=== PATIENT | female | born 2000 | race Two or more races ===

== ENCOUNTER 2018-04-09 16:43 | Emergency (ER) | payer OTHER ==
[2018-04-09 16:58] VITALS: BP 115/72
[2018-04-09] MEDS ORDERED: Tetracaine 0.5% OPTH.SOL 4 ML* 1 DROP BTL BOTH EYES ONE (17:10)
--- NOTE | 2018-04-09 17:17 | UC ---
Eye Complaint HPI - HPI Summary HPI Summary: Got sunscreen in her eye about 3 hours ago---got some eye rinse at the pharmacy is her because eye are red and sore - History of Current Complaint Chief Complaint: UCEye Stated Complaint: SUNSCREEN IN EYES Time Seen by Provider: 04/09/18 17:06 Hx Obtained From: Patient Hx Last Menstrual Period: 2 weeks ?: No Onset/Duration: Sudden Onset, Lasting Hours - 3, Still Present Timing: Constant Pain Intensity: 7 Pain Scale Used: 0-10 Numeric Location of Injury: Conjunctiva - ou Character: Throbbing Aggravating Factor(s): Nothing Alleviating Factor(s): Nothing - Allergies/Home Medications Allergies/Adverse Reactions: Allergies Allergy/AdvReac Type Severity Reaction Status Date / Time down feathers Allergy Anaphylatic Uncoded 08/07/17 22:18 Shock Home Medications: Home Medications Ibuprofen TAB* [Motrin TAB* 600 MG] 600 mg PO SEE INSTRUCTIONS PRN 04/09/18 [ History Confirmed 04/09/18] PMH/Surg Hx/FS Hx/Imm Hx Previously Healthy: No Neurological History: Migraine - Surgical History Surgical History: Yes Surgery Procedure, Year, and Place: TONSILECTIMY 2002; WISDOM TEETH 2013 - Family History Known Family History: Positive: None - Social History Occupation: Student Lives: With Family Alcohol Use: Occasionally Alcohol Amount: "one or two" per pt Substance Use Type: None Substance Use Comment - Amount & Last Used: marijuana use daily Smoking Status (MU): Current Some Day Smoker Type: Cigarettes Amount Used/How Often: pt reports spoking "here and there" on social occassions. Have You Smoked in the Last Year: Yes - pt declines tobacco cessation When Did the Patient Quit Smoking/Using Tobacco: "few weeks ago" was last used - Immunization History Most Recent Influenza Vaccination: unknown Most Recent Pneumonia Vaccination: unknown Vaccination Up to Date: Yes Review of Systems Constitutional: Negative Skin: Negative Eyes: Eye Redness ENT: Negative Respiratory: Negative Cardiovascular: Negative Gastrointestinal: Negative Genitourinary: Negative Motor: Negative Neurovascular: Negative Musculoskeletal: Negative Neurological: Negative Psychological: Negative Is Patient Immunocompromised?: No All Other Systems Reviewed And Are Negative: Yes Physical Exam Triage Information Reviewed: Yes Appearance: Well-Appearing, No Pain Distress, Well-Nourished Vital Signs: Initial Vital Signs Temp 98.9 F 04/09/18 16:51 Pulse 99 04/09/18 16:51 Resp 18 04/09/18 16:51 BP 115/72 04/09/18 16:51 Pulse Ox 100 04/09/18 16:51 Vital Signs Reviewed: Yes Eye Exam: Other Eyes: Positive: Conjunctiva Inflamed - OU ENT Exam: Normal ENT: Positive: Normal ENT inspection, Hearing grossly normal. Negative: Nasal congestion, Nasal drainage, Trismus, Muffled voice, Hoarse voice, Dental tenderness Dental Exam: Normal Neck exam: Normal Neck: Positive: Supple, Nontender Respiratory Exam: Normal Respiratory: Positive: Chest non-tender, No respiratory distress, No accessory muscle use Cardiovascular Exam: Normal Cardiovascular: Positive: RRR, Pulses Normal, Brisk Capillary Refill Musculoskeletal Exam: Normal Musculoskeletal: Positive: Strength Intact, ROM Intact, No Edema Neurological Exam: Normal Neurological: Positive: Alert, Muscle Tone Normal Psychological Exam: Normal Skin Exam: Normal Re-Evaluation - Re-Evaluation First Eval Change: Improved - patient tolerated well Eye Complaint Course/Dx - Course Course Of Treatment: cool compress, polytrim eye drops, tylenol/ ibuprofen for pain follow with Dr. Delgadillo prn - Differential Dx/Diagnosis Provider Diagnoses: chemical exposure both eyes Discharge - Sign-Out/Discharge Documenting (check all that apply): Discharge/Admit/Transfer - Discharge Plan Condition: Stable Disposition: HOME Patient Education Materials: Sodium Chloride (Into the eye), Chemical Eye Miner (ED), How to Use Eye Drops (ED) Referrals: Duc Delgadillo MD [Medical Doctor] - If Needed - Billing Disposition and Condition Condition: STABLE Disposition: Home
[2018-04-09] MEDS ORDERED: Polymyx/Trimethoprim OPTH* 10 ML BTL BOTH EYES ONE (17:47)
== END 2018-04-09 18:01 | disposition home or self-care (01) ==
LOC: UCCORT 16:43
DX: T15.92XA Foreign body on external eye, part unspecified, left eye, initial encounter (principal); T15.91XA Foreign body on external eye, part unspecified, right eye, initial encounter; S00.252A Superficial foreign body of left eyelid and periocular area, initial encounter; S00.251A Superficial foreign body of right eyelid and periocular area, initial encounter; X58.XXXA Exposure to other specified factors, initial encounter; Y93.9 Activity, unspecified; Y92.9 Unspecified place or not applicable; Z87.891 Personal history of nicotine dependence
CPT/HCPCS: 99212; A9270-GY; G0463

== ENCOUNTER 2018-10-01 10:57 | Emergency (ER) | payer OTHER ==
[2018-10-01 11:20] VITALS: BP 112/69
--- NOTE | 2018-10-01 11:23 | UC ---
Throat Pain/Nasal Anupam HPI - HPI Summary HPI Summary: 18 yo female presents with sinus congestion and sore throat for 3-4 days, but left ear pain began yesterday and is worse today. Pain in left side of throat. Denies fever, chills, cough, headache, dizziness. - History of Current Complaint Chief Complaint: UCGeneralIllness Stated Complaint: SORE THROAT, EAR COMPLAINT Time Seen by Provider: 10/01/18 11:23 Hx Obtained From: Patient Hx Last Menstrual Period: 1 month ago Onset/Duration: Gradual Onset Severity: Mild Pain Intensity: 3 Pain Scale Used: 0-10 Numeric - Allergies/Home Medications Allergies/Adverse Reactions: Allergies Allergy/AdvReac Type Severity Reaction Status Date / Time down feathers Allergy Anaphylatic Uncoded 10/01/18 11:20 Shock Home Medications: Home Medications Control 1 tab PO DAILY 10/01/18 [History Confirmed 10/01/18] Dm/PE/Acetaminophen/Chlorphenr [Ching-[place] Plus Cold &] 1 cap PO 10/01/18 [ History] PMH/Surg Hx/FS Hx/Imm Hx Neurological History: Migraine - Surgical History Surgical History: Yes Surgery Procedure, Year, and Place: TONSILECTOMY 2002; WISDOM TEETH 2013 - Family History Known Family History: Positive: None - Social History Occupation: Student Lives: With Family Alcohol Use: Occasionally Alcohol Amount: "one or two" per pt Substance Use Type: None Substance Use Comment - Amount & Last Used: marijuana use daily Smoking Status (MU): Former Smoker Type: Cigarettes Amount Used/How Often: pt reports spoking "here and there" on social occassions. Have You Smoked in the Last Year: Yes - pt declines tobacco cessation When Did the Patient Quit Smoking/Using Tobacco: "few weeks ago" was last used - Immunization History Most Recent Influenza Vaccination: unknown Most Recent Pneumonia Vaccination: unknown Vaccination Up to Date: Yes Review of Systems All Other Systems Reviewed And Are Negative: Yes Constitutional: Positive: Negative Skin: Positive: Negative Eyes: Positive: Negative ENT: Positive: Sore Throat, Ear Ache, Sinus Congestion Respiratory: Positive: Negative Cardiovascular: Positive: Negative Gastrointestinal: Positive: Negative Physical Exam - Summary Physical Exam Summary: GENERAL: NAD. WDWN. No pain distress. SKIN: No rashes, sores, lesions, or open wounds. HEENT: Head: AT/NC Eyes: EOM intact. Conjunctiva clear without inflammation or discharge. Ears: Hearing grossly normal. LEFT TM with moderate erythema and bulging. No canal edema or drainage. Nose: Nasal mucosa pink and moist. NTTP maxillary and frontal sinus. Throat: Posterior oropharynx without exudates or erythema. Uvula midline. NECK: Supple. Nontender. No lymphadenopathy. CHEST: CTAB. No r/r/w. No accessory muscle use. Breathing comfortably and in no distress. CV: RRR. Without m/r/g. Pulses intact. NEURO: Alert. PSYCH: Age appropriate behavior. Triage Information Reviewed: Yes Vital Signs: Initial Vital Signs Temp 97.2 F 10/01/18 11:17 Pulse 78 10/01/18 11:17 Resp 16 10/01/18 11:17 BP 112/69 10/01/18 11:17 Pulse Ox 100 10/01/18 11:17 Vital Signs Reviewed: Yes Throat Pain/Nasal Course/Dx - Course Course Of Treatment: Left otitis media - Differential Dx/Diagnosis Provider Diagnosis: Left otitis media Discharge - Sign-Out/Discharge Documenting (check all that apply): Patient Departure All imaging exams completed and their final reports reviewed: No Studies - Discharge Plan Condition: Stable Disposition: HOME Prescriptions: Amoxicillin PO (*) [Amoxicillin 875 MG (*)] 875 mg PO BID #20 tab Patient Education Materials: Ear Infection (ED) Referrals: Rhoda Burnham MD [Primary Care Provider] - Additional Instructions: If you develop a fever, shortness of breath, chest pain, new or worsening symptoms - please call your PCP or go to the ED. - Billing Disposition and Condition Condition: STABLE Disposition: Home - Attestation Statements Provider Attestation: Per institutional requirements, I have reviewed the chart, however, I was not consulted specifically or made aware of this patient by the midlevel provider. I did not personally evaluate, interact with , or disposition this patient.
== END 2018-10-01 11:35 | disposition home or self-care (01) ==
LOC: UCEAST 10:57
DX: H66.92 Otitis media, unspecified, left ear (principal); Z91.018 Allergy to other foods; Z87.891 Personal history of nicotine dependence
CPT/HCPCS: 99212; G0463

== ENCOUNTER 2019-02-11 13:21 | Emergency (ER) | payer OTHER ==
[2019-02-11 13:59] VITALS: BP 108/57
--- NOTE | 2019-02-11 14:11 | UC ---
Eye Complaint HPI - HPI Summary HPI Summary: LEFT EYE IRRITATION FOR ABOUT 4-5 DAY. SCLERA WAS PINK,LAST TWO MORNINGS EYE WAS CRUSTED . PT STATES SHE HAS HAD A COLD THIS WEEK. SCRATCHY THROAT, SINUS AND EAR CONGESTION. - History of Current Complaint Chief Complaint: UCEye Stated Complaint: L EYE COMPLAINT Time Seen by Provider: 02/11/19 13:53 Hx Obtained From: Patient Hx Last Menstrual Period: PT IS ON CONTINOUS BC, NO PEROID SINCE 05/2018 ?: No Onset/Duration: Sudden Onset, Lasting Days Severity Initially: Moderate Severity Currently: Moderate Pain Intensity: 0 Location of Injury: Conjunctiva Character: Foreign Body Sensation Associated Signs And Symptoms: Positive: Drainage (Purulent) - Allergies/Home Medications Allergies/Adverse Reactions: Allergies Allergy/AdvReac Type Severity Reaction Status Date / Time down feathers Allergy Anaphylatic Uncoded 02/11/19 13:47 Shock Home Medications: Home Medications Topiramate TAB(*) [Topamax 100 mg tab] 100 mg PO BEDTIME 02/11/19 [History Confirmed 02/11/19] raNITIdine HCl [Zantac 75] 75 mg PO PRN 02/11/19 [History] PMH/Surg Hx/FS Hx/Imm Hx Previously Healthy: Yes - Surgical History Surgical History: Yes Surgery Procedure, Year, and Place: TONSILECTOMY 2002; WISDOM TEETH 2013 - Family History Known Family History: Positive: None Negative: Cardiac Disease, Hypertension - Social History Alcohol Use: Occasionally Alcohol Amount: "one or two" per pt Substance Use Type: None Substance Use Comment - Amount & Last Used: marijuana use daily Smoking Status (MU): Former Smoker Type: Cigarettes Amount Used/How Often: pt reports spoking "here and there" on social occassions. Have You Smoked in the Last Year: Yes - pt declines tobacco cessation When Did the Patient Quit Smoking/Using Tobacco: "few weeks ago" was last used - Immunization History Most Recent Influenza Vaccination: unknown Most Recent Pneumonia Vaccination: unknown Vaccination Up to Date: Yes Review of Systems All Other Systems Reviewed And Are Negative: Yes Eyes: Positive: Drainage, Eye Redness ENT: Positive: Sinus Congestion Is Patient Immunocompromised?: No Physical Exam Triage Information Reviewed: Yes Appearance: No Pain Distress, Well-Nourished, Ill-Appearing Vital Signs: Initial Vital Signs Temp 97.9 F 02/11/19 13:50 Pulse 75 02/11/19 13:50 Resp 20 02/11/19 13:50 BP 108/57 02/11/19 13:50 Pulse Ox 100 02/11/19 13:50 Vital Signs Reviewed: Yes Eyes: Positive: Conjunctiva Inflamed, Discharge ENT: Positive: TM bulging - left, Sinus tenderness Dental Exam: Normal Neck exam: Normal Respiratory Exam: Normal Cardiovascular Exam: Normal Abdominal Exam: Normal Bowel Sounds: Positive: Present Musculoskeletal Exam: Normal Neurological Exam: Normal Psychological Exam: Normal Skin Exam: Normal Eye Complaint Course/Dx - Course Course Of Treatment: hx obtained, exam performed ,meds reviewed, treated for left eye conjucntivitis - Differential Dx/Diagnosis Differential Diagnosis/HQI/PQRI: Conjunctivitis, Corneal Abrasion, Periorbital Cellulitis, Orbital Cellulitis Provider Diagnosis: Conjunctivitis, left eye Discharge - Sign-Out/Discharge Documenting (check all that apply): Patient Departure All imaging exams completed and their final reports reviewed: No Studies - Discharge Plan Condition: Stable Disposition: HOME Prescriptions: Erythromycin OPHTH.OINT* [Ilotycin OPHTH.OINT*] 1 applic LEFT EYE TID #1 tube Patient Education Materials: Conjunctivitis (ED) Referrals: Rhoda Burnham MD [Primary Care Provider] - Additional Instructions: 1. use the eye medication as prescribed. 2. warm compresses to the eye can help as well. 3. Wash hand frequently - Billing Disposition and Condition Condition: STABLE Disposition: Home
== END 2019-02-11 14:18 | disposition home or self-care (01) ==
LOC: UCCORT 13:21
DX: H10.32 Unspecified acute conjunctivitis, left eye (principal); Z87.891 Personal history of nicotine dependence
CPT/HCPCS: 99211; G0463

== ENCOUNTER 2019-03-28 16:30 | Emergency (ER) | payer OTHER ==
[2019-03-28 17:00] VITALS: BP 108/75
[2019-03-28] MEDS ORDERED: Al Hydrox/Mg Hydrox/Simet LIQ* 30 ML UDC PO ONE (17:27)
[2019-03-28] MEDS ORDERED: Lidocaine 2% VISCOUS* 15 ML UDC PO ONE (17:28)
--- NOTE | 2019-03-28 17:32 | UC ---
UC General HPI - HPI Summary HPI Summary: per triage, Acid reflux for over a year. Started to follow with PMD regarding it last week. Was told to do a "GERD diet" and take Zantac BID PRN. Now has sore throat and bilateral ear achiness x24 hours. Describes reflux as burn and acid in throat. no relief with the Zantac. Has cut back on coffee which is helping. - History of Current Complaint Chief Complaint: UCGeneralIllness Stated Complaint: ACID REFLUX,SORE THROAT,PAINFUL SWALLOWING Time Seen by Provider: 03/28/19 17:14 Hx Obtained From: Patient Hx Last Menstrual Period: BCP continuously Onset/Duration: Gradual Onset Timing: Constant Pain Intensity: 8 Associated Signs & Symptoms: Negative: Abdominal Pain, Diarrhea, Fever, Vomiting - Allergy/Home Medications Allergies/Adverse Reactions: Allergies Allergy/AdvReac Type Severity Reaction Status Date / Time down feathers Allergy Anaphylatic Uncoded 03/28/19 16:52 Shock PMH/Surg Hx/FS Hx/Imm Hx GI/ History: Gastroesophageal Reflux Neurological History: Migraine - Surgical History Surgical History: Yes Surgery Procedure, Year, and Place: TONSILECTOMY 2002; WISDOM TEETH 2013 - Family History Known Family History: Positive: None Negative: Cardiac Disease, Hypertension - Social History Alcohol Use: None Alcohol Amount: "one or two" per pt Substance Use Type: None Substance Use Comment - Amount & Last Used: marijuana use daily Smoking Status (MU): Former Smoker Type: Cigarettes Amount Used/How Often: pt reports spoking "here and there" on social occassions. Have You Smoked in the Last Year: Yes - pt declines tobacco cessation When Did the Patient Quit Smoking/Using Tobacco: "few weeks ago" was last used - Immunization History Most Recent Influenza Vaccination: unknown Most Recent Pneumonia Vaccination: unknown Vaccination Up to Date: Yes Review of Systems All Other Systems Reviewed And Are Negative: Yes ENT: Positive: Sore Throat, Ear Ache Physical Exam Triage Information Reviewed: Yes Appearance: Well-Appearing Vital Signs: Initial Vital Signs Temp 99.0 F 03/28/19 16:54 Pulse 84 03/28/19 16:54 Resp 16 03/28/19 16:54 BP 108/75 03/28/19 16:54 Pulse Ox 99 03/28/19 16:54 Vital Signs Reviewed: Yes Eyes: Positive: Conjunctiva Clear ENT: Positive: Pharyngeal erythema - with mild swelling, TMs normal, Uvula midline. Negative: Nasal congestion, Nasal drainage, Trismus, Muffled voice, Hoarse voice Neck: Positive: Supple, Tenderness @ - peritonsilar nodes, Enlarged Nodes @ - peritonsialr Respiratory: Positive: Lungs clear, Normal breath sounds Cardiovascular: Positive: RRR, No Murmur Abdomen Description: Positive: Nontender, No Organomegaly, Soft Bowel Sounds: Positive: Present Musculoskeletal: Positive: ROM Intact Neurological: Positive: Alert Psychological: Positive: Age Appropriate Behavior Skin Exam: Normal Diagnostics - Laboratory Lab Results: rapid strep=positive Course/Dx - Differential Dx - Multi-Symptom Differential Diagnoses: Other - NON TOXIC. NO ACUTE ABDOMEN. - Diagnoses Provider Diagnosis: Strep throat, GERD (gastroesophageal reflux disease) Discharge - Sign-Out/Discharge Documenting (check all that apply): Patient Departure All imaging exams completed and their final reports reviewed: No Studies - Discharge Plan Condition: Stable Disposition: HOME Prescriptions: Amoxicillin PO (*) [Amoxicillin 500 MG CAP*] 500 mg PO Q12H 10 Days #20 cap Omeprazole CAP (NF) [Prilosec CAP* 20 MG] 20 mg PO DAILY 14 Days #14 cap. Patient Education Materials: Strep Throat (DC), Gastroesophageal Reflux Disease (ED) Referrals: Rhoda Burnham MD [Primary Care Provider] - Additional Instructions: STOP THE ZANTAC - Billing Disposition and Condition Condition: STABLE Disposition: Home
== END 2019-03-28 17:48 | disposition home or self-care (01) ==
LOC: UCCORT 16:30
DX: J02.0 Streptococcal pharyngitis (principal); K21.9 Gastro-esophageal reflux disease without esophagitis; Z87.891 Personal history of nicotine dependence
CPT/HCPCS: 87651; 99212; A9270-GY; G0463

== ENCOUNTER 2019-07-03 10:06 | Emergency (ER) | payer OTHER ==
[2019-07-03 10:51] VITALS: BP 103/56
--- NOTE | 2019-07-03 11:00 | UC ---
Throat Pain/Nasal Anupam HPI - HPI Summary HPI Summary: 19-year-old female with cold symptoms over the past 2-3 days. She thinks she may have had a fever last evening. No history of asthma, no nausea vomiting or diarrhea, no urinary symptoms. - History of Current Complaint Chief Complaint: UCRespiratory Stated Complaint: CHEST CONGESTION Time Seen by Provider: 07/03/19 10:35 Hx Obtained From: Patient Hx Last Menstrual Period: DOES NOT HAVE PERIODS. USES CONTINUOUS BCP ?: No Onset/Duration: Gradual Onset Severity: Mild Pain Intensity: 6 Cough: Nonproductive Associated Signs & Symptoms: Positive: Nasal Discharge - Clear nasal coryza., Fever - Patient thinks she had a fever last evening. - Allergies/Home Medications Allergies/Adverse Reactions: Allergies Allergy/AdvReac Type Severity Reaction Status Date / Time down feathers Allergy Anaphylatic Uncoded 07/03/19 10:38 Shock Home Medications: Home Medications Acetaminophen TAB* [Tylenol TAB*] 650 mg PO Q4H PRN 07/03/19 [History Confirmed 07/03/19] Sodium Bicarbonate/Sod Citrat [Ching-[place] Heartburn Re] 1 tab PO PRN 07/03/19 [History] PMH/Surg Hx/FS Hx/Imm Hx Previously Healthy: Yes - Surgical History Surgical History: Yes Surgery Procedure, Year, and Place: TONSILECTOMY 2002; WISDOM TEETH 2013 - Family History Known Family History: Positive: None Negative: Cardiac Disease, Hypertension - Social History Occupation: Student Lives: Dormitory/Roommates Alcohol Use: Weekly Alcohol Amount: "one or two" per pt Substance Use Type: None Substance Use Comment - Amount & Last Used: marijuana use daily Smoking Status (MU): Former Smoker Type: Cigarettes Amount Used/How Often: pt reports spoking "here and there" on social occassions. Have You Smoked in the Last Year: No - pt declines tobacco cessation When Did the Patient Quit Smoking/Using Tobacco: "few weeks ago" was last used - Immunization History Most Recent Influenza Vaccination: unknown Most Recent Pneumonia Vaccination: unknown Vaccination Up to Date: Yes Review of Systems All Other Systems Reviewed And Are Negative: Yes Constitutional: Positive: Fever - Patient thinks she had a fever last evening. ENT: Positive: Nasal Discharge Respiratory: Positive: Cough - Nonproductive cough Is Patient Immunocompromised?: No Physical Exam Triage Information Reviewed: Yes Appearance: Well-Appearing, No Pain Distress, Well-Nourished Vital Signs: Initial Vital Signs Temp 98.4 F 07/03/19 10:41 Pulse 75 07/03/19 10:41 Resp 16 07/03/19 10:41 BP 103/56 07/03/19 10:41 Pulse Ox 100 07/03/19 10:41 Vital Signs Reviewed: Yes Eyes: Positive: Conjunctiva Clear ENT: Positive: Pharynx normal, Nasal congestion, Nasal drainage - Clear nasal coryza., TMs normal, Uvula midline Neck: Positive: Supple, Nontender, No Lymphadenopathy Respiratory: Positive: Lungs clear, Normal breath sounds, No respiratory distress, No accessory muscle use Cardiovascular: Positive: RRR, No Murmur, Pulses Normal, Brisk Capillary Refill Musculoskeletal Exam: Normal Neurological Exam: Normal Psychological Exam: Normal Skin Exam: Normal Throat Pain/Nasal Course/Dx - Course Course Of Treatment: I believe this is the viral upper respiratory illness that is going around [facility]. Patient does not appear ill. She is awake and alert. She is basically to do comfort measures and follow[facility] at the [facility] if no improvement in 4- 5 days. - Differential Dx/Diagnosis Provider Diagnosis: URI (upper respiratory infection) Discharge ED - Sign-Out/Discharge Documenting (check all that apply): Patient Departure All imaging exams completed and their final reports reviewed: No Studies - Discharge Plan Condition: Good Disposition: HOME Patient Education Materials: Upper Respiratory Infection (DC) Referrals: Rhoda Burnham MD [Primary Care Provider] - YASSINE CASTILLO [[email or web address], [employer], OTHER] - Additional Instructions: Increase fluids, [id number] medications as directed, [facility] if no improvement in 4- 5 days. - Billing Disposition and Condition Condition: GOOD Disposition: Home
== END 2019-07-03 11:03 | disposition home or self-care (01) ==
LOC: UCCORT 10:06
DX: J06.9 Acute upper respiratory infection, unspecified (principal); Z87.891 Personal history of nicotine dependence
CPT/HCPCS: 99211; G0463

== ENCOUNTER 2021-04-21 15:59 | Observation (INO) ==
[2021-04-21] MEDS ORDERED: Droperidol 5 MG/2 ML 2 ML VIAL IV ONE (19:35)
[2021-04-21] MEDS ORDERED: Lorazepam PYXIS KEY PRN (19:35)
[2021-04-21] MEDS ORDERED: LORazepam 2 mg VIAL 1 ml IM ONE (19:35)
[2021-04-21] MEDS ORDERED: NS 0.9% 1000 ml BAG 1,000 ML IV ONE (19:35)
[2021-04-21 20:12] LABS: ABS Lymphocytes 1.8 10^3/ul (1.0-4.8); ABS Monocytes 0.4 10^3/ul (0-0.8); ABS Neutrophils 5.3 10^3/ul (1.5-7.7); Eosinophil % 0.2 %; Hematocrit 40 % (35-47); Hemoglobin 13.4 g/dL (12.0-16.0); Lymphocyte % 24.1 %; Mean Corpuscular HGB Conc 34 g/dL (31-36); Mean Corpuscular Hemoglobin 30 pg (27-31); Mean Corpuscular Volume 88 fL (80-97); Mean Platelet Volume 8.8 fL (7.4-10.4); Platelet Count 240 10^3/uL (150-450); Red Blood Count 4.52 10^6 /uL (3.70-4.87); Red Cell Distribution Width 14 % (10-15); White Blood Count 7.5 10^3/uL (3.5-10.8)
[2021-04-21 20:26] LABS: ALT 34 U/L (7-52); AST 40 U/L (13-39); Albumin 4.7 g/dL (3.2-5.2); Albumin/Globulin Ratio 1.8 (1-3); Alkaline Phosphatase 44 U/L (35-149); Anion Gap 11 mmol/L (2-11); Blood Urea Nitrogen 7 mg/dL (6-24); C Reactive Protein < 1.00 mg/L (<8.01); CO2 Carbon Dioxide 23 mmol/L (22-32); Calcium 9.7 mg/dL (8.6-10.3); Chloride 106 mmol/L (101-111); EGFR Non-African American 109.1 (>60); Globulin 2.6 g/dL (2-4); Glucose 97 mg/dL (70-100); Potassium 3.2 mmol/L (3.5-5.0); Sodium 140 mmol/L (135-145); Total Protein 7.3 g/dL (6.4-8.9)
[2021-04-21] MEDS ORDERED: Benztropine 2 mg AMP 1 MG/ML 2 ml AMP SLOW PUSH ONE (20:28)
[2021-04-21 21:00] LABS: TSH Ultra Thyroid Stim Horm 7.27 mcIU/mL (0.34-5.60)
[2021-04-21] MEDS ORDERED: Morphine 4 MG/ML VIAL (1 ml) IV ONE (21:46)
[2021-04-22] MEDS ORDERED: Potassium Chlor 20 meq TAB.ER PO ONE ×2 (03:04→16:34)
[2021-04-22] MEDS ORDERED: Ondansetron 4 mg VIAL 2 MG/ML 2 ml VIAL IV PRN (03:04)
[2021-04-22] MEDS ORDERED: NS 0.9% 1000 ml BAG 1,000 ML IV SCH (03:15)
[2021-04-22 06:36] LABS: ABS Eosinophils 0.1 10^3/ul (0-0.6); ABS Lymphocytes 1.9 10^3/ul (1.0-4.8); ABS Monocytes 0.4 10^3/ul (0-0.8); ABS Neutrophils 3.2 10^3/ul (1.5-7.7); Hematocrit 34 % (35-47); Hemoglobin 11.8 g/dL (12.0-16.0); Lymphocyte % 34.2 %; Mean Corpuscular HGB Conc 34 g/dL (31-36); Mean Corpuscular Hemoglobin 30 pg (27-31); Mean Corpuscular Volume 88 fL (80-97); Mean Platelet Volume 8.6 fL (7.4-10.4); Platelet Count 201 10^3/uL (150-450); Red Blood Count 3.91 10^6 /uL (3.70-4.87); Red Cell Distribution Width 14 % (10-15); White Blood Count 5.6 10^3/uL (3.5-10.8)
[2021-04-22 06:41] LABS: INR 1.13 (0.86-1.15)
[2021-04-22 06:51] LABS: Calcium 9.1 mg/dL (8.6-10.3); EGFR African American 139.1 (>60); Magnesium 1.9 mg/dL (1.9-2.7); Potassium 3.1 mmol/L (3.5-5.0)
[2021-04-22 12:44] VITALS: BP 102/60
== END 2021-04-22 18:00 | disposition home or self-care (01) ==
LOC: MED 15:59 → ED 15:59 → MED 04-22 05:25
PROVIDERS: ADMIT Internal Medicine; ATTEND Internal Medicine

== ENCOUNTER 2021-04-22 23:42 | Observation (INO) ==
[2021-04-23] MEDS ORDERED: Ondansetron ODT 4 mg TAB 4 MG TAB SL ONE (00:12)
[2021-04-23] MEDS ORDERED: Droperidol 5 MG/2 ML 2 ML VIAL IV ONE ×2 (00:28→02:15)
[2021-04-23] MEDS ORDERED: diPHENhydraMINE IV 50 MG/ML 1 ml VIAL (BENADRYL) IV ONE (05:33)
[2021-04-23 06:46] LABS: Urine Benzodiazepine Screen None Detected (None Detect); Urine Cannabinoids Screen None Detected (None Detect); Urine Opiates Screen None Detected (None Detect)
[2021-04-23 11:55] LABS: Calcium 9.9 mg/dL (8.6-10.3); EGFR African American 107.6 (>60); EGFR Non-African American 88.9 (>60); Potassium 3.5 mmol/L (3.5-5.0)
[2021-04-23] MEDS ORDERED: Lactated Ringers 1000 ml BAG 1,000 ML IV ONE (14:07)
[2021-04-23] MEDS ORDERED: Ondansetron 4 mg VIAL 2 MG/ML 2 ml VIAL IV ONE (15:05)
[2021-04-23 16:36] VITALS: BP 115/59
== END 2021-04-23 18:20 | disposition home or self-care (01) ==
LOC: MED 23:42 → ED 23:42 → MED 04-23 09:16
PROVIDERS: ADMIT Internal Medicine; ATTEND Internal Medicine

== ENCOUNTER 2021-10-21 12:24 | Observation (INO) ==
[2021-10-21 21:47] LABS: ABS Eosinophils 0.1 10^3/ul (0-0.6); ABS Lymphocytes 2.4 10^3/ul (1.0-4.8); ABS Monocytes 0.4 10^3/ul (0-0.8); ABS Neutrophils 2.5 10^3/ul (1.5-7.7); Eosinophil % 1.9 %; Hematocrit 40 % (35-47); Hemoglobin 13.4 g/dL (12.0-16.0); Mean Corpuscular HGB Conc 34 g/dL (31-36); Mean Corpuscular Hemoglobin 29 pg (27-31); Mean Corpuscular Volume 87 fL (80-97); Mean Platelet Volume 8.2 fL (7.4-10.4); Nucleated Red Blood Cells % 0.1; Platelet Count 244 10^3/uL (150-450); Red Blood Count 4.56 10^6 /uL (3.70-4.87); Red Cell Distribution Width 14 % (10-15); White Blood Count 5.4 10^3/uL (3.5-10.8)
[2021-10-21 22:04] LABS: Albumin 4.5 g/dL (3.2-5.2); Albumin/Globulin Ratio 1.9 (1-3); Globulin 2.4 g/dL (2-4); Potassium 3.6 mmol/L (3.5-5.0); Total Bilirubin 0.3 mg/dL (0.2-1.0); Total Protein 6.9 g/dL (6.4-8.9); eGFR CKD-EPI 125.4 (>60)
[2021-10-21 22:09] LABS: CKMB ng/mL 0.9 ng/mL (0.6-6.3)
[2021-10-21 22:58] LABS: TSH Ultra Thyroid Stim Horm 2.47 mcIU/mL (0.34-5.60)
[2021-10-22] MEDS ORDERED: oxyCODONE/Acetamin 5/325 mg TAB PO ONE (02:44)
[2021-10-22] MEDS: Enoxaparin 40 MG/0.4 ML SYR SUBCUT SCH ×2 (02:46→22:09)
[2021-10-22] MEDS ORDERED: Potassium Chlor 20 meq TAB.ER PO ONE (09:35)
[2021-10-22] MEDS ORDERED: Gadoteridol (CONTRAST) 279.3 MG/ML 10 ML IV ONE (17:43)
[2021-10-23 07:33] LABS: ABS Eosinophils 0.2 10^3/ul (0-0.6); ABS Lymphocytes 1.9 10^3/ul (1.0-4.8); ABS Monocytes 0.4 10^3/ul (0-0.8); ABS Neutrophils 1.9 10^3/ul (1.5-7.7); Hematocrit 39 % (35-47); Hemoglobin 13.3 g/dL (12.0-16.0); Lymphocyte % 44.3 %; Mean Corpuscular HGB Conc 34 g/dL (31-36); Mean Corpuscular Hemoglobin 30 pg (27-31); Mean Corpuscular Volume 87 fL (80-97); Mean Platelet Volume 8.6 fL (7.4-10.4); Nucleated Red Blood Cells % 0.1; Platelet Count 205 10^3/uL (150-450); Red Blood Count 4.48 10^6 /uL (3.70-4.87); Red Cell Distribution Width 14 % (10-15); White Blood Count 4.4 10^3/uL (3.5-10.8)
[2021-10-23 07:45] LABS: Calcium 8.9 mg/dL (8.6-10.3); Magnesium 2.1 mg/dL (1.9-2.7); Potassium 3.7 mmol/L (3.5-5.0); eGFR CKD-EPI 122.4 (>60)
[2021-10-23] MEDS ORDERED: methylPREDNISolone SOD SUCC 1000 MG ML VIAL IVPB SCH (09:00)
[2021-10-23] MEDS ORDERED: methylPREDNISolone SOD SUCC 1000 MG in NS 0.9% 100 ML IVPB SCH (10:00)
[2021-10-23] MEDS ORDERED: Ondansetron 4 mg VIAL 2 MG/ML 2 ml VIAL IV ONE (10:56)
[2021-10-23 14:04] LABS: HIV 4th Generation Nonreactive (Nonreactive)
[2021-10-23 14:57] LABS: Hepatitis B Surface Antigen Nonreactive (Nonreactive)
[2021-10-23 15:15] LABS: Hepatitis B Surface Ab Immune (Immune)
[2021-10-23 16:14] VITALS: BP 109/58
[2021-10-24 13:46] LABS: SS-A/Ro Antibody <0.2 U; SS-B/La Antibody <0.2 U
[2021-10-24 14:50] LABS: EBV, IgG Ab to Early Antigen Positive (Negative); Varicella IgG Antibody Index 0.6; Varicella-Zoster IgG Antibody Negative
[2021-10-25 14:43] LABS: Varicella-Zoster IgM Antibody Negative (Negative)
== END 2021-10-23 16:08 | disposition home or self-care (01) ==
LOC: ED 12:24 → EDHOLD 12:24 → SUATTDRO 21:00 → MEDTELE 23:37
PROVIDERS: ADMIT Internal Medicine; ATTEND Student in an Organized Health Care Education/Training Program